=== PATIENT | female | born 1940 | race Caucasian/White ===

== ENCOUNTER 2016-04-27 13:24 | Day surgery (SDC) | payer OTHER ==
[~2016-04-27] VITALS: Ht 160 cm; Wt 70.8 kg
[~2016-04-27 13:24] MED LIST: ASPIR-LOW81 MG PO; CELEXA20 MG PO; INDOCIN25 MG PO; LYRICA50 MG PO; PAXIL CR25 MG PO; PAXIL20 MG PO; PLAQUENIL200 MG PO; SOTALOL80 MG PO
== END 2016-04-27 16:30 | disposition home or self-care (01) ==
LOC: CATH 13:24
DX: Z45.010 Encounter for checking and testing of cardiac pacemaker pulse generator [battery] (principal); I44.2 Atrioventricular block, complete; I47.1 Supraventricular tachycardia; G43.909 Migraine, unspecified, not intractable, without status migrainosus; Z79.82 Long term (current) use of aspirin; Z98.890 Other specified postprocedural states
CPT/HCPCS: C1785; J0690; J1200; J2250; J3010; S0020